=== PATIENT | male | born 1980 | race Hispanic/Latino ===

== ENCOUNTER 2024-06-22 10:31 | Emergency (ER) | payer OTHER ==
[~2024-06-22] VITALS: Ht 167.6 cm; Wt 176.9 kg
[2024-06-22 11:29] VITALS: PULSE 78; RESP 17; TEMP 98.3
[2024-06-22] MEDS ORDERED: IBUPROFEN 600 MG TAB PO STA (12:02)
[2024-06-22] MEDS ORDERED: IBUPROFEN800 MG PO (12:06)
[2024-06-22 12:37] VITALS: BP 168/98; PULSE 79; RESP 20; TEMP 98.4; O2SAT 97
== END 2024-06-22 12:43 | disposition home or self-care (01) ==
LOC: FSED 10:34
DX: M79.672 Pain in left foot (principal); W50.0XXA Accidental hit or strike by another person, initial encounter; Y92.89 Other specified places as the place of occurrence of the external cause; I10 Essential (primary) hypertension
CPT/HCPCS: 99284

== ENCOUNTER 2025-06-03 16:22 | Observation (INO) | payer OTHER ==
[~2025-06-03] VITALS: Ht 170.2 cm; Wt 184.6 kg
[~2025-06-03 16:22] MED LIST: IBUPROFEN800 MG PO
[2025-06-03 16:45] VITALS: TEMP 96.5
[2025-06-03] MEDS ORDERED: IOPAMIDOL 370 MG/ML 100 ML INFUS..BTL INJ ONE (17:31)
[2025-06-03] MEDS: ONDANSETRON HCL INJ 2MG/ML 2ML 2 MG/ML VIAL IV STA (17:33)
[2025-06-03] MEDS: Morphine 4mg INJECTION 4 MG/ML INJ IV ONE (17:33)
[2025-06-03 18:26] VITALS: PULSE 73; RESP 20
[2025-06-03] MEDS ORDERED: ONDANSETRON HCL INJ 2MG/ML 2ML 2 MG/ML VIAL IV PRN (19:00)
[2025-06-03] MEDS ORDERED: Morphine 2mg Syringe 2 MG/ML SYR IV PRN (19:00)
[2025-06-03 20:29] VITALS: BP 159/98; PULSE 80; RESP 20; TEMP 97.5; O2SAT 95
[2025-06-03 21:00] VITALS: BP 159/98; PULSE 80; RESP 20; TEMP 97.5; O2SAT 95
[2025-06-03] MEDS: SODIUM CHLORIDE 0.9% 1000ML 1,000 ML IV SCH (21:35)
[2025-06-03 23:13] VITALS: BP 157/98; PULSE 75; RESP 20; TEMP 97.9; O2SAT 96
[2025-06-04 03:20] VITALS: BP 143/105; PULSE 86; RESP 20; TEMP 97.5; O2SAT 92
[2025-06-04 05:36] LABS: BASOPHILS % 0.5 % (0.0-1.0); EOSINOPHILS % 15.4 % (0.0-6.0); LYMPHOCYTES % 23.3 % (18.0-39.1); MONOCYTES % 4.7 % (4.4-11.3); NEUTROPHILS % 55.8 % (38.7-80.0); RED CELL DISTRIBUTION WIDTH 14.9 % (11.7-14.4)
[2025-06-04 06:06] LABS: EST GLOMERULAR FILTRATION RATE 113.0 ML/MIN (>=60)
[2025-06-04] MEDS ORDERED: OZEMPIC0.25 MG/02 SQ (07:28)
[2025-06-04] MEDS ORDERED: LOSARTAN-HCTZ1 EAC1 PO (07:28)
[2025-06-04] MEDS ORDERED: AMLODIPINE BESY10 MG PO (07:28)
[2025-06-04 08:15] VITALS: BP 114/73; PULSE 79; RESP 22; TEMP 98.9; O2SAT 90
[2025-06-04 08:30] VITALS: BP 114/73; PULSE 79; RESP 22; TEMP 98.9; O2SAT 90
[2025-06-04] MEDS ORDERED: ACETAMINOPHEN 325 MG TAB PO PRN (10:30)
[2025-06-04 11:24] VITALS: BP 168/103; PULSE 80; TEMP 97.9; O2SAT 97
== END 2025-06-04 12:00 | disposition home or self-care (01) ==
LOC: FSED 16:53 → INTOOBSV 18:46 → ERHOLD 18:46 → MED/SURG 20:31
PROVIDERS: ADMIT Internal Medicine; ATTEND Internal Medicine
DX: R10.33 Periumbilical pain (principal); K42.9 Umbilical hernia without obstruction or gangrene; E66.01 Morbid (severe) obesity due to excess calories; Z68.44 Body mass index [BMI] 60.0-69.9, adult; E11.65 Type 2 diabetes mellitus with hyperglycemia; I10 Essential (primary) hypertension; Z79.85 Long-term (current) use of injectable non-insulin antidiabetic drugs
CPT/HCPCS: 36415 ×2; 74177; 80048; 80053; 82948 ×2; 83605; 84484; 85025 ×2; 87040; 93005; 99284; G0378 ×2; J2270; J2405; J2543; J7030 ×2; Q9967